=== PATIENT | female | born 1955 | race Caucasian/White ===

== ENCOUNTER 2023-01-15 14:34 | Outpatient (CLI) | payer MEDICARE | END 2023-01-15 14:35 | disposition home or self-care (01) | LOC: CSHRAD 14:34 | PROVIDERS: ATTEND Internal Medicine Rheumatology | DX: M79.641 Pain in right hand (principal); M79.642 Pain in left hand; M25.561 Pain in right knee; M25.562 Pain in left knee; M15.4 Erosive (osteo)arthritis; M17.11 Unilateral primary osteoarthritis, right knee ==